=== PATIENT | female | born 1960 | race Caucasian/White ===

== ENCOUNTER 2016-06-03 12:05 | Emergency (ER) | payer OTHER ==
[2016-06-03] MEDS ORDERED: IPRATROPIUM/ALBUTEROL SULFATE 3 ML AMPUL.NEB NEB ONE (12:37)
[2016-06-03] MEDS ORDERED: 0.9 % SODIUM CHLORIDE 1,000 ML IV ONE (12:37)
--- NOTE | 2016-06-03 12:39 | ED Physician Documentation ---
Upper Respiratory Symptoms - HISTORIAN Historian: patient - HPI Chief Complaint: Fever Onset: days ago (2-3 days ago) Duration: constant Severity: moderate Associated Symptoms: fever (103), chills, sore throat, other (headache, body aches) Further Comments: yes - ROS CONST/EYES: weakness - PAST HX Lung Disease: none, other (hypothyroidism). denies: asthma, COPD Other History: other (anxeity) Surgeries/Procedures: appendectomy, hysterectomy, other (right lumpectomy, sinus surgery, tonsilectomy) Immunizations: influenza Allergies/Adverse Reactions: Allergies Allergy/AdvReac Type Severity Reaction Status Date / Time Penicillins Allergy Verified 06/03/16 12:50 Home Medications: Ambulatory Orders Medication Instructions Recorded Alprazolam [XANAX] 1 mg PO TID PRN 06/03/16 Azithromycin [Zithromax] 250 mg PO QD #6 tablet 06/03/16 Bupropion HCl [Bupropion HCl] 75 mg PO BID 06/03/16 Cholecalciferol (Vitamin D3) 5,000 unit PO QDAY 06/03/16 [Vitamin D-3] Duloxetine HCl [Duloxetine HCl] 60 mg PO QDAY 06/03/16 Hydrochlorothiazide 12.5 mg PO QDAY 06/03/16 [Hydrochlorothiazide] Thyroid,Pork [[place] Thyroid] 180 mg PO QDAY 06/03/16 diphenhydrAMINE HCL [Benadryl] 25 mg PO Q4 PRN 06/03/16 - SOCIAL HX Smoking History: quit greater than 1 year (26yrs ago) Alcohol Use: rarely Drug Use: none - FAMILY HX Family History: no significant history, other (thyroid problems) - VITAL SIGNS Vital Signs: Vital Signs Temp Pulse Resp BP Pulse Ox 101.9 F H 95 H 20 128/58 97 06/03/16 12:06 06/03/16 12:06 06/03/16 12:06 06/03/16 12:06 06/03/16 12:06 - REVIEWED ASSESSMENTS Nursing Assessment Reviewed: Yes Vitals Reviewed: Yes ED Results Lab/Radiology - Lab Results Lab Results: Lab Results 06/03/16 06/03/16 06/03/16 12:45 12:40 12:40 WBC 9.10 K/ul K/ul (4.00-12.00) RBC 5.07 M/ul M/ul (3.90-5.20) Hgb 14.1 g/dL g/dL (12.0-16.0) Hct 41.7 % % (34.5-46.5) MCV 82.2 fl fl (80.0-100.0) MCH 27.7 pg L pg (28.0-34.0) MCHC 33.7 g/dL g/dL (30.0-36.0) RDW 12.4 % % (11.3-14.3) Plt Count 253 K/mm3 K/mm3 (130-400) Neut % (Auto) 84.6 % H % (39.0-79.0) Lymph % (Auto) 6.2 % L % (16.0-50.0) [place] % (Auto) 6.3 % % (0.0-11.0) Eos % (Auto) 1.8 % % (0.0-6.8) Baso % (Auto) 0.2 (0.0-1.5) Neut # 7.7 # k/uL # k/uL (1.4-7.7) Lymph # 0.6 # k/uL # k/uL (0.6-4.0) [place] # 0.6 # k/uL # k/uL (0.0-0.9) Eos # 0.2 # k/uL # k/uL (0.0-0.6) Baso # 0.0 # k/uL # k/uL (0.0-0.5) Reactive Lymphs % 0.9 % % (0.0-5.0) Reactive Lymphs # 0.1 # k/uL # k/uL (0.0-0.8) Sodium 132 mmol/L L mmol/L (136-145) Potassium 3.6 mmol/L mmol/L (3.5-5.0) Chloride 97 mmol/L L mmol/L (98-110) Carbon Dioxide 28 mmol/L mmol/L (20-32) BUN 10 mg/dL mg/dL (10-26) Creatinine 0.6 mg/dL mg/dL (0.4-1.5) Estimated Creat Clear 128 Est GFR ( Amer) > 60 (60 - ) Est GFR (Non-Af Amer) > 60 (60 - ) Glucose 135 mg/dL H mg/dL (70-99) Calcium 9.3 mg/dL mg/dL (8.5-10.5) Total Bilirubin 0.4 mg/dL mg/dL (0.2-1.2) AST 22 U/L U/L (0-41) ALT 20 U/L U/L (0-45) Alkaline Phosphatase 127 U/L H U/L (46-116) Total Protein 7.1 g/dL g/dL (6.0-8.5) Albumin 4.2 g/dL g/dL (3.0-5.5) Influenza Type A Ag Negative (NEGATIVE) Influenza Type B Ag Negative (NEGATIVE) - Orders Orders: ED Orders Category Date Time Status Place Saline Lock/IV Now Care 06/03/16 12:36 Active CHEST P.A.&LAT 2 VIEWS [RAD] Routine Exams 06/03/16 Completed CBC/PLATELET/DIFF Routine Lab 06/03/16 12:40 Completed CMP Routine Lab 06/03/16 12:40 Completed INFLUENZA A&B Routine Lab 06/03/16 12:45 Completed 0.9 % Sodium Chloride [Normal Saline] 1,000 ml Med 06/03/16 13:00 Ordered IV .Q1H Alprazolam [Xanax] Med 06/03/16 13:04 Discontinued 0.5 mg PO NOW ONE Ipratropium/Albuterol Sulfate [Duoneb] Med 06/03/16 12:37 Discontinued 3 ml NEB .STK-MED ONE Ipratropium/Albuterol Sulfate [Duoneb] Med 06/03/16 13:04 Discontinued 3 ml NEB NOW ONE Upper Respiratory Symptoms - EXAM General Appearance: alert, mild distress EENT: nml ENT inspection Neck: normal inspection, thyroid normal, supple. No: lymphadenopathy, stiff neck Respiratory: no resp. distress, breath sounds nml, no pain on inspiration, speaks full sentences, rales (scattered bilaterally). No: rhonchi, stridor Abdomen: non-tender, no organomegaly, nml bowel sounds CVS: reg rate & rhythm, heart sounds normal, no murmur Skin: color nml, no rash, warm,dry Neuro/Psych: oriented x3, neuro intact Discharge Clincal Impression: Bronchitis Prescriptions: Azithromycin [Zithromax] 250 mg PO QD #6 tablet Referrals: Primary Doctor,No [Primary Care Provider] - 2 Days Additional Instructions: Drink a lot of fluids, take azithromycin as directed. If your breathing gets worse to follow-up with your primary care provider or return tot he ED. Take some mucinex as needed for cough and congestion. Home Medications: Ambulatory Orders Alprazolam [XANAX] 1 mg PO TID PRN 06/03/16 Azithromycin [Zithromax] 250 mg PO QD #6 tablet 06/03/16 Bupropion HCl [Bupropion HCl] 75 mg PO BID 06/03/16 Cholecalciferol (Vitamin D3) [Vitamin D-3] 5,000 unit PO QDAY 06/03/16 Duloxetine HCl [Duloxetine HCl] 60 mg PO QDAY 06/03/16 Hydrochlorothiazide [Hydrochlorothiazide] 12.5 mg PO QDAY 06/03/16 Thyroid,Pork [[place] Thyroid] 180 mg PO QDAY 06/03/16 diphenhydrAMINE HCL [Benadryl] 25 mg PO Q4 PRN 06/03/16 Condition: Stable Disposition: 01 HOME, SELF-CARE Decision to Admit: NO Date of Decison to Admit: 06/03/16 Decision Time: 14:31
[2016-06-03 12:44] LABS: BASOPHILS % 0.2 (0.0-1.5); EOSINOPHILS % 1.8 % (0.0-6.8); LYMPHOCYTES # 0.6 # k/uL (0.6-4.0); MEAN CORPUSCULAR HEMOGLOBIN 27.7 pg (28.0-34.0); MONOCYTES # 0.6 # k/uL (0.0-0.9); MONOCYTES % 6.3 % (0.0-11.0); NEUTROPHILS # 7.7 # k/uL (1.4-7.7)
[2016-06-03] MEDS: 0.9 % SODIUM CHLORIDE 1,000 ML IV SCH (13:03)
[2016-06-03 13:05] LABS: eGFR (African) > 60; eGFR (Non-African) > 60
[2016-06-03] MEDS: IPRATROPIUM/ALBUTEROL SULFATE 3 ML AMPUL.NEB NEB ONE (13:05)
[2016-06-03] MEDS: ALPRAZOLAM 0.5 MG TABLET PO ONE (13:09)
--- NOTE | 2016-06-03 14:15 | Diagnostic Imaging Report ---
HUMBERTO AHUJA [facility] [id number] [facility].[address] [id number] Report Submission Date: Jun 03, 2016 1:22:14 PM PRUNE WASHER Patient Study Name: CHAPIN PARKER Date: Jun 03, 2016 1:09:22 PM PRUNE WASHER Modality Type: CR Gender: F Description: CHEST : 58 Institution: [facility] Physician: HUMBERTO AHUJA Chest -two views CLINICAL HISTORY: Cough. Difficulty breathing for 3 days. FINDINGS: Examination of the chest in PA and lateral views with no prior film for comparison demonstrates the lungs to be clear. The cardiovascular and mediastinal silhouettes are within normal limits. Bony thorax is intact. IMPRESSION: No active disease. Electronically signed on Jun 03, 2016 1:22:14 PM PRUNE WASHER by: Jorge PARK
[2016-06-03 15:16] VITALS: BP 122/70
== END 2016-06-03 14:50 | disposition home or self-care (01) ==
LOC: ED 12:05
DX: J20.9 Acute bronchitis, unspecified (principal)
CPT/HCPCS: 71020; 80053; 85025; 87400; 94640; J7030; 99283; 99284; S1016